=== PATIENT | female | born 1985 | race Caucasian/White ===

== ENCOUNTER → 2016-09-17 | Outpatient (CLI) | payer OTHER ==
[2016-09-17 13:59] LABS: MEAN CORPUSCULAR HEMOGLOBIN 30.2 pg (27.0-33.0); MEAN CORPUSCULAR HGB CONC 33.5 g/dl (32.0-36.5); MEAN CORPUSCULAR VOLUME 90.1 fl (80.0-96.0); WHITE BLOOD COUNT 12.2 K/mm3 (4.0-10.0)
[2016-09-17 13:59] LABS: CONTROL LINE UCG INT CTR LINE PRESENT
[2016-09-17 14:17] LABS: ALBUMIN 4.3 GM/DL (3.2-5.2); ALKALINE PHOSPHATASE 95 U/L (45-117); ALT/SGPT 145 U/L (12-78); ANION GAP 5 MEQ/L (8-16); AST/SGOT 20 U/L (15-37); BILIRUBIN,TOTAL 0.2 MG/DL (0.2-1.0); BLOOD UREA NITROGEN 8 MG/DL (7-18); CALCIUM LEVEL 9.2 MG/DL (8.5-10.1); CARBON DIOXIDE LEVEL 29 MEQ/L (21-32); CHLORIDE LEVEL 108 MEQ/L (98-107); CREATININE FOR GFR 0.61 MG/DL (0.55-1.02); GLOMERULAR FILTRATION RATE > 60.0 (>60); GLUCOSE, FASTING 88 MG/DL (70-105); POTASSIUM SERUM 4.1 MEQ/L (3.5-5.1); SODIUM LEVEL 142 MEQ/L (136-145); TOTAL PROTEIN 7.6 GM/DL (6.4-8.2)
[2016-09-18 13:39] LABS: HIV SCRN NEGATIVE (NEGATIVE)
[2016-09-18 13:43] LABS: CONTROL LINE INT CTR LINE PRESENT; HIV SCRN1 NEGATIVE (NEGATIVE)
== END ==
LOC: M LAB 13:15
PROVIDERS: ATTEND Family Medicine
DX: F11.20 Opioid dependence, uncomplicated (principal)

== ENCOUNTER → 2016-09-30 | Outpatient (CLI) | payer OTHER ==
--- NOTE | 2016-09-30 13:28 | REP ---
RIGHT SHOULDER, THREE VIEWS: HISTORY: Pain. There is no acute fracture or dislocation. The joint spaces are normal in appearance. IMPRESSION: There is no acute fracture or dislocation. Signed by Maurisio Brown MD 09/30/2016 01:29 P
== END ==
LOC: M LRY 12:52
PROVIDERS: ATTEND Nurse Practitioner Family
DX: M25.511 Pain in right shoulder (principal)

== ENCOUNTER → 2016-12-23 | Outpatient (REF) | payer OTHER, MEDICAID | LOC: M SFHCLERA 13:24 | PROVIDERS: ATTEND Nurse Practitioner Family | DX: J02.9 Acute pharyngitis, unspecified (principal) ==

== ENCOUNTER → 2017-01-01 | Outpatient (REF) | payer OTHER, MEDICAID | LOC: M LAB REF 16:58 | PROVIDERS: ATTEND Family Medicine Addiction Medicine | DX: F11.120 Opioid abuse with intoxication, uncomplicated (principal) ==

== ENCOUNTER → 2017-02-18 | Outpatient (REF) | payer OTHER, MEDICAID | LOC: M LAB REF 16:48 | PROVIDERS: ATTEND Family Medicine Addiction Medicine | DX: M25.642 Stiffness of left hand, not elsewhere classified (principal) ==

== ENCOUNTER → 2017-06-19 | Outpatient (REF) | payer OTHER, MEDICAID | LOC: M LAB REF 17:19 | PROVIDERS: ATTEND Family Medicine Addiction Medicine | DX: F11.120 Opioid abuse with intoxication, uncomplicated (principal) ==

== ENCOUNTER → 2017-06-22 | Outpatient (REF) | payer OTHER | LOC: M LAB REF 18:47 | PROVIDERS: ATTEND Obstetrics & Gynecology | DX: Z12.4 Encounter for screening for malignant neoplasm of cervix (principal) ==

== ENCOUNTER → 2017-08-12 | Outpatient (REF) | payer OTHER, MEDICAID | LOC: M LAB REF 20:03 | DX: F11.120 Opioid abuse with intoxication, uncomplicated (principal) | CPT/HCPCS: 80362 ==

== ENCOUNTER → 2017-09-16 | Outpatient (REF) | payer OTHER, MEDICAID | LOC: M LAB REF 22:20 | DX: F11.120 Opioid abuse with intoxication, uncomplicated (principal) ==

== ENCOUNTER 2017-10-07 16:23 | Emergency (ER) | payer OTHER, MEDICAID ==
[2017-10-07] MEDS: METHOCARBAMOL 750 MG TAB PO (18:53)
[2017-10-07] MEDS: GI COCKTAIL 50ML BTL(HYOSCYAMINE/MAALOX/LIDOCAINE VISCOUS)(1:3:1) PO (18:54)
[2017-10-07] MEDS: ONDANSETRON 4 MG ORAL DISINTEGRATING TAB (S0181) PO (21:15)
== END 2017-10-07 21:29 | disposition home or self-care (01) ==
LOC: M ED 16:23
DX: S06.0X0A Concussion without loss of consciousness, initial encounter (principal); S16.1XXA Strain of muscle, fascia and tendon at neck level, initial encounter; W10.9XXA Fall (on) (from) unspecified stairs and steps, initial encounter; Y92.009 Unspecified place in unspecified non-institutional (private) residence as the place of occurrence of the external cause; M79.7 Fibromyalgia; M32.9 Systemic lupus erythematosus, unspecified; I10 Essential (primary) hypertension; K21.9 Gastro-esophageal reflux disease without esophagitis; F17.200 Nicotine dependence, unspecified, uncomplicated; Z79.899 Other long term (current) drug therapy; Z79.3 Long term (current) use of hormonal contraceptives; Z88.1 Allergy status to other antibiotic agents; Z88.2 Allergy status to sulfonamides
CPT/HCPCS: 72110

== ENCOUNTER → 2017-10-07 | Outpatient (REF) | payer OTHER, MEDICAID | LOC: M LAB REF 16:27 | DX: F11.120 Opioid abuse with intoxication, uncomplicated (principal) ==

== ENCOUNTER → 2017-11-11 | Outpatient (REF) | payer OTHER, MEDICAID | LOC: M LAB REF 14:45 | DX: F11.120 Opioid abuse with intoxication, uncomplicated (principal) | CPT/HCPCS: 80362 ==

== ENCOUNTER → 2017-11-12 | Outpatient (REF) | payer OTHER, MEDICAID | LOC: M LAB REF 11:50 | DX: F11.120 Opioid abuse with intoxication, uncomplicated (principal) ==

== ENCOUNTER → 2017-12-15 | Outpatient (REF) | payer OTHER, MEDICAID | LOC: M LAB REF 11:49 | DX: F11.120 Opioid abuse with intoxication, uncomplicated (principal) | CPT/HCPCS: 80362 ==

== ENCOUNTER → 2025-05-20 | Outpatient (REF) | payer OTHER, MEDICAID, MEDICARE ==
[~2025-05-20] MED LIST: CYCL-707 PO; MEDR1VL IM; NAPR-885 PO; SUBO8MIS SL; ZOFR4TAB14 PO
[2025-05-20 19:35] LABS: URINE PREG TEST NEGATIVE (NEGATIVE)
[2025-05-20 19:38] LABS: APPEARANCE, URINE HAZY (CLEAR); BACTERIA, URINE AUTO 1+ (NEGATIVE); BILIRUBIN, URINE AUTO NEGATIVE (NEGATIVE); BLOOD, URINE BLOOD NEGATIVE (NEGATIVE); CALCIUM OXALATE CRYSTALS SMALL; GLUCOSE, URINE (UA) AUTO NEGATIVE (NEGATIVE); KETONE, URINE AUTO TRACE mg/dL (NEGATIVE); LEUKOCYTE ESTERASE, URINE AUTO NEGATIVE (NEGATIVE); MUCUS, URINE LARGE (NEGATIVE); NITRITE, URINE AUTO NEGATIVE (NEGATIVE); PROTEIN, URINE AUTO 2+ mg/dL (NEGATIVE); RBC, URINE AUTO 41 /HPF (0-3); SPECIFIC GRAVITY URINE AUTO 1.021 (1.002-1.035); SQUAMOUS EPITHELIAL CELL UR AU 6 /HPF (0-6); UROBILINOGEN, URINE AUTO 0.2 mg/dL (0.0-2.0); WBC, URINE AUTO 18 /HPF (0-3)
[2025-05-20 20:51] LABS: Trichomonas vaginalis (AMP) NOT DETECTED (NEGATIVE)
[2025-05-20 21:15] LABS: GC DNA AMPLIFICATION NEGATIVE (NEGATIVE)
== END ==
LOC: M LAB REF 19:21
DX: N39.0 Urinary tract infection, site not specified (principal); Z20.2 Contact with and (suspected) exposure to infections with a predominantly sexual mode of transmission